=== PATIENT | female | born 1965 | race Caucasian/White ===

== ENCOUNTER 2023-12-30 10:23 | Emergency (ER) | payer OTHER, SELFPAY ==
--- NOTE | 2023-12-30 10:15 | RT.EKG_ITS ---
APPROVED REPORT Exam: Resting ECG Reason for Exam: Chest pain Patient Location: E HR:50 bpm ECG Measurements Heart Rate 50 AXIS NE 176 P 25 QRSd 90 QRS 10 QT 467 T 120 QTc 428 Conclusion Sinus bradycardia...rate< 60
[2023-12-30 10:25] VITALS: BP 150/75; PULSE 51; RESP 18; TEMP 36.4; O2SAT 96
--- NOTE | 2023-12-30 10:30 | DI.RAD_ITS ---
Exam(s) XR CHEST 2V PA LATERAL EXAM: XR CHEST 2V PA LATERAL CLINICAL HISTORY: chest pain TECHNIQUE: 2D digital imaging was performed. Two views. COMPARISON: No exams were available for comparison FINDINGS: HEART: Normal size. Aorta: Not dilated. PULMONARY VASCULATURE: Normal. LUNGS: Clear. PLEURAL SPACE: No pleural effusion or pneumothorax. BONE:Unremarkable for age. Soft tissues: Unremarkable. IMPRESSION: No acute abnormality. DATA REPOSITORY: RADIATION DOSE DELIVERED:
[2023-12-30 10:42] VITALS: RESP 16
[2023-12-30 10:44] LABS: Abs Immature Grans 0.02 10^3/uL (0.0-0.06); Absolute Basophil Count 0.04 10^3/uL (0.0-0.2); Absolute Eosinophil Count 0.07 10^3/uL (0.0-0.7); Absolute Lymphocyte Count 1.48 10^3/uL (1.2-3.4); Absolute Neutrophil Count 4.29 10^3/uL (1.2-6.7); Basophils % 0.6 %; Eosinophils % 1.1 %; HCT 46.6 % (36.0-46.0); HGB 15.7 g/dL (11.2-15.7); Immature Grans % 0.3 %; Lymphocytes % 23.1 %; MCH 31.7 pg (27.0-33.0); MCHC 33.7 % (32.0-36.0); MCV 94 fL (80-95); Monocytes % 7.8 %; Neutrophils % 67.1 %; Platelet Count 203 10^3/uL (130-400); RBC 4.95 10^6/uL (3.93-5.22); RDW 11.7 % (11.7-14.6); RDW-SD 40.5 fL
--- NOTE | 2023-12-30 10:52 | W.ED.GENAD ---
Discharge Plan Disposition Patient Disposition: Home Condition: Improving Discharge Details Clinical Impression: Pressure in chest Primary Care Provider: Unknown,Unknown ED Provider: Tony Noyola Home Meds and New Rx's Prescriptions: Continued topiramate [Topamax] 50 mg tablet 50 mg PO DAILY topiramate [Topamax] 25 mg tablet 25 mg PO QHS fluoxetine [Prozac] 40 mg capsule 40 mg PO DAILY lisinopril 10 mg tablet 10 mg PO DAILY trazodone 50 mg tablet 50 mg PO QHS PRN alprazolam [Xanax] 0.5 mg tablet 0.5 mg PO BID-TID PRN Discharge Instructions Instructions: Chest pain Additional Instructions: Your evaluation in the ER today does not reveal any obvious emergent process. You did respond well to the IV Pepcid as well as the GI cocktail. I do recommend taking [id number] Pepcid for the next 2 weeks and monitor your symptoms carefully. I would also contact your primary care provider on Tuesday to discuss your ER visit and need for outpatient reevaluation. I would recommend an outpatient stress test and echocardiogram for thorough cardiac workup. You do have subtle changes on your EKG although there were no dynamic changes on repeat EKG. Your troponins also appear stable. Please watch for new or worsening symptoms and return to the ER for any concerns. Discharge Data Discharge Date/Time-TO BE ENTERED AT DEPARTURE: 12/30/23 15:59 HPI General Mode of arrival: ambulatory. Date/Time Provider Initiated Documentation: 12/30/23 10:33. Limitations to Documentation: no limitations. Information obtained by: patient. History of Present Illness 58 year old F presents to the emergency department with the chief complaint of heart burn, described as moderate, with intensity rated at 5. Quality is described as burning, and is localized to the chest and abdomen (upper). Patient reports no radiation. Patient started experiencing this hour(s) (3.5) and it has been constant. No relieving factors improve symptom(s), No exacerbating factors reported . Patient notes nausea/vomiting (just nausea). Patient did receive the following treatments prior to arrival, other (Tums) Related Data Home Medications Medication Instructions Recorded Confirmed alprazolam 0.5 mg tablet (Xanax) 0.5 mg PO BID-TID PRN 12/30/23 12/30/23 fluoxetine 40 mg capsule (Prozac) 40 mg PO DAILY 12/30/23 12/30/23 lisinopril 10 mg tablet 10 mg PO DAILY 12/30/23 12/30/23 topiramate 25 mg tablet (Topamax) 25 mg PO QHS 12/30/23 12/30/23 topiramate 50 mg tablet (Topamax) 50 mg PO DAILY 12/30/23 12/30/23 trazodone 50 mg tablet 50 mg PO QHS PRN 12/30/23 12/30/23 Allergies Allergy/AdvReac Type Severity Reaction Status Date / Time No Known Allergies Allergy Unverified 12/30/23 10:39 General Stated Complaint: Chest Pain TIMMY: 2 Review of Systems Constitutional Constitutional: Denies headache(s) and Denies weakness ENT Ears, Nose, Mouth, and Throat: Denies headache(s) and Denies neck pain Cardiovascular Cardiovascular: Denies chest pain, Denies dyspnea and Reports other (Chest pressure) Respiratory Respiratory: Denies cough and Denies dyspnea Gastrointestinal Gastrointestinal: Reports abdominal pain, Denies diarrhea and Reports nausea Genitourinary Genitourinary: Denies dysuria Musculoskeletal Musculoskeletal: Denies back pain and Denies neck pain Integumentary/Breasts Skin/Breast: Denies rash Neurologic Neurologic: Denies headache(s) and Denies weakness Exam Const General: cooperative, healthy appearing, comfortable and no acute distress Orientation: alert and awake [facility] Head: normal to inspection, normocephalic and atraumatic Face and sinus: normal facial exam Mouth: moist mucous membranes Eyes General: appearance normal, both eyes and all related structures Conjunctivae: conjunctivae normal Neck Neck: normal visual inspection, full ROM, trachea midline and supple Chest Chest: normal inspection of the chest and normal palpation of entire chest wall Resp Effort & Inspection: normal respiratory effort and able to speak in complete sentences Auscultation: clear to auscultation bilaterally Cardio Rate: bradycardic (50s, patient reports baseline resting heart rate) Rhythm: regular rhythm GI Inspection: normal to inspection Palpation: soft, not firm, no guarding and nontender Auscultation: normal bowel sounds Back/Spine/Pelvis Back: No back tenderness Skin General skin exam: no rashes or lesions noted Neuro General: patient alert, patient awake, moves all extremities and no focal motor deficits Cognition: normal cognition Speech: speech normal Gait: normal gait Sensory Exam: no sensory deficits noted Extrem General: normal to inspection, full ROM, capillary refill normal and no pedal edema Psych Appearance: grossly normal Mental Status: mental status grossly normal Course Vital Signs Vital signs: Vital Signs Temperature 36.4 C L 12/30/23 10:25 Pulse 51 L 12/30/23 10:25 Respiratory Rate 18 12/30/23 10:25 Blood Pressure 150/75 H 12/30/23 10:25 Pulse Oximetry 96 12/30/23 10:25 Temperature 36.4 C L 12/30/23 10:25 Temperature Source Tympanic 12/30/23 10:25 Pulse 51 L 12/30/23 10:25 Respiratory Rate 16 12/30/23 10:42 Respiratory Effort Normal 12/30/23 10:42 Respiratory Depth Normal 12/30/23 10:42 Respiratory Pattern Normal 12/30/23 10:42 Blood Pressure 150/75 H 12/30/23 10:25 Blood Pressure Position Supine 12/30/23 10:25 Pulse Oximetry 96 12/30/23 10:25 Oxygen Delivery Method Room Air 12/30/23 10:25 Oxygen Flow Rate 0 12/30/23 10:25 Pain Level 4 12/30/23 10:25 Lab/Test Results Lab/Test Results: Laboratory Tests Range/Units 12/30/23 10:32 WBC (4.4-10.8) 10^3/uL 6.40 RBC (3.93-5.22) 10^6/uL 4.95 Hgb (11.2-15.7) g/dL 15.7 Hct (36.0-46.0) % 46.6 H MCV (80-95) fL 94 MCH (27.0-33.0) pg 31.7 MCHC (32.0-36.0) % 33.7 RDW (11.7-14.6) % 11.7 Plt Count (130-400) 10^3/uL 203 MPV (8.0-11.0) fL 11.0 Immature Gran % % 0.3 Neutrophils % % 67.1 Lymphocytes % % 23.1 Monocytes % % 7.8 Eosinophils % % 1.1 Basophils % % 0.6 Nucleated RBC % (0.0-0.3) % 0.0 Absolute Neutrophils (1.2-6.7) 10^3/uL 4.29 Absolute Lymphocytes (1.2-3.4) 10^3/uL 1.48 Absolute Monocytes (0.1-0.8) 10^3/uL 0.50 Absolute Eosinophils (0.0-0.7) 10^3/uL 0.07 Absolute Basophils (0.0-0.2) 10^3/uL 0.04 Medical Decision Making This is a 58-year-old female, non-smoker, reports that on Tuesday she developed some abdominal cramping associated with some nausea. Over the next 24 hours though symptoms resolved but she began having some what she describes as heartburn. Progressively throughout the week his heartburn has become worse and is now which she describes a pressure in her central chest which does not radiate anywhere. She did trial some [id number] medications today without any real relief of her symptoms. She denies cardiac history. Admits to medical history that includes hypertension, anxiety, GERD during her . Recently started on Wegovy. Also reports some positive dietary changes. Wegovy does have known side effects of dyspepsia. Clinically she appears well, nontoxic. Hemodynamically stable. Chest pressure and heartburn but no active chest pain. Heart rate in the 50s. Plan to obtain IV access and initiate cardiac workup and serial troponin and EKG. No shortness of breath, cough, chest pain, extremely low suspicion for PE. Will not pursue D-dimer. Will provide a single dose of aspirin for cardioprotective purposes and will give a GI cocktail. Patient is agreeable to this plan. Upon reevaluation she is resting comfortably, remains hemodynamically stable. Reports that her symptoms are much improved after the GI cocktail but not resolved completely. Initial laboratory values are unremarkable including a troponin less than 50. Patient is agreeable to IV Pepcid and awaiting delta troponin. Upon reevaluation patient is resting comfortably, no acute distress. She now reports that her symptoms have resolved completely. Delta troponin remains less than 50. Repeat EKG at 1315 reveals sinus bradycardia, rate in the 50s, no dynamic changes no ST elevation. Subtle depressions remain unchanged. PVC noted. Please see Dr. Lilly's official report. Discussed in length with patient and family patient is now asymptomatic, reassuring workup here in the ER. Overall patient is low risk. Discussed while this could be dyspepsia secondary to medication changes, it is certainly prudent to complete her cardiac workup. At this time she does not need to be emergently admitted, would be unable to obtain echocardiogram or stress test over the weekend. Patient is quite comfortable with outpatient follow-up. Plan to be discharged from the ER and she will take [id number] Pepcid for the next 2 weeks. On Tuesday she will contact her PCP to discuss her ER visit, symptoms, and need for outpatient reevaluation including cardiac workup. She was encouraged to return to the ER immediately for new or evolving symptoms. Standard discharge and return precautions were provided. Patient understands, is agreeable to this plan, and has no additional questions or concerns upon discharge. This documentation was generated using mBloxation system, please disregard any oddities of phrase or misspellings. Medical Records Medical records narrative: No prior records to review Imaging Data Radiologic Study: Attestation: I personally reviewed and interpreted this imaging study as follows: Imaging: X-Ray My impression: Chest x-ray negative Radiologist's impression: No acute disease process Lab Data Lab results reviewed: Yes I reviewed the patient's lab results. ECG Data Attestation: I personally reviewed and interpreted this ECG (s) as follows: Interpretation: Sinus bradycardia, ventricular rate in the 50s. No STEMI. Subtle ST depressions noted. No prior EKG for comparison. Please see official report by Dr. Lilly Quality:[facility] Health Related Social Needs: No Data to Display [facility] All Active Problems (Updated 12/30/23 @ 14:46 by FRANKLYN Daniels) Pressure in chest (Acute) Social History Smoking/Tobacco Use Status: Never Smoking risk assessment performed?: Yes Alcohol Intake: current Alcohol Intake frequency: a few times a month Drug use: Occasionally Substance use type: marijuana PAWSS Have you Been Recently Intoxicated or Drunk Within the Last 30 days?: No Have you Ever Experienced Previous Episodes of Alcohol Withdrawal?: No Have you ever Experienced Withdrawal Seizures?: No Have you ever Experienced Delirium Tremens(DT)s?: No Have you ever undergone Alcohol Rehabilitation Treatment (i.e, inpt ot outpatient treatment programs)?: No Have you ever Experienced Blackouts?: No Have you ever Combined Alcohol with other Downers within the last 90 days?: No Have you ever Combined Alcohol with any other Substance of Abuse during the last 90 days?: No Result: 0
[2023-12-30 11:14] LABS: ALT 23 U/L (14-59); AST 15 U/L (15-37); Albumin 4.3 g/dL (3.4-5.0); Alkaline Phosphatase 93 U/L (46-116); Anion Gap 9.2 mmol/L (3-11); BUN 15 mg/dL (7-18); Bilirubin, Total 0.82 mg/dL (0.2-1.0); CO2 25.8 mmol/L (21.0-32.0); CREATININE 0.9 mg/dL (0.55-1.02); Calcium 9.5 mg/dL (8.5-10.1); Chloride 105 mmol/L (98-107); Estimated GFR 73.19 (mL/min/1.73m2); Glucose 102 mg/dL (74-106); Potassium 3.7 mmol/L (3.5-5.1); Sodium 140 mmol/L (136-145); Total Protein 7.5 g/dL (6.4-8.2); Troponin I < 50 ng/L (< or =60)
[2023-12-30] MEDS: Aspirin 81 MG CHEW 324 MG CH (11:15)
[2023-12-30] MEDS: FAMOTIDINE 20 MG/50 ML BAG 200 MG IVPB (13:09)
--- NOTE | 2023-12-30 13:15 | RT.EKG_ITS ---
APPROVED REPORT Exam: Resting ECG Reason for Exam: Repeat EKG Patient Location: E HR:56 bpm ECG Measurements Heart Rate 56 AXIS CO 195 P 47 QRSd 89 QRS 0 QT 438 T 136 QTc 405 Conclusion Sinus bradycardia...rate< 60 Ventricular premature complex...V complex w/ short R-R interval
[2023-12-30 13:58] LABS: Troponin I < 50 ng/L (< or =60)
== END 2023-12-30 15:59 | disposition home or self-care (01) ==
LOC: ER 15:15
PROVIDERS: Physician Assistant; Emergency Provider Physician Assistant
DX: R07.89 Other chest pain (principal)
CPT/HCPCS: 36415; 80053; 93005; 96374; 99284; 71046; 83735; 84484; 85025; 93010; 99283

== ENCOUNTER 2024-02-20 02:23 | Outpatient (CLI) | payer OTHER, SELFPAY ==
--- NOTE | 2024-02-20 10:48 | DI.RAD_ITS ---
Exam(s) XR HIP LT COMPLETE AP PELVIS EXAM: XR HIP LT COMPLETE AP PELVIS CLINICAL HISTORY: PAIN LT HIP, M25.552. TECHNIQUE: 2D digital imaging was performed of the left hip. Two views were obtained. AP pelvis an d lateral left hip views were obtained. COMPARISON: No exams were available for comparison FINDINGS: BONES: No acute fracture is present. No bony destructive lesion is seen. JOINTS: No dislocation present. The hip joints are well maintained. The sacroiliac joints are unrema rkable. There are degenerative changes seen in the lower visualized lumbar spine. SOFT TISSUE: Normal. IMPRESSION: 1. Degenerative changes seen in the lower lumbar spine. 2. No acute fracture or dislocation of the left hip. DATA REPOSITORY: RADIATION DOSE DELIVERED:
== END 2024-02-20 02:43 ==
PROVIDERS: PCP Nurse Practitioner Family; Visit Provider Nurse Practitioner Family
DX: M25.552 Pain in left hip (principal); M16.12 Unilateral primary osteoarthritis, left hip
CPT/HCPCS: 73502

== ENCOUNTER 2024-03-09 00:43 | Outpatient (CLI) | payer OTHER, SELFPAY ==
--- NOTE | 2024-03-09 | DI.MAMMO_ITS ---
Exam(s) MAMMO SCREENING EXAM: MAMMO SCREENING CLINICAL HISTORY: Z12.31 Screening. TECHNIQUE: Bilateral full field digital CC and MLO mammographic images were obtained with 3D tomosyn thesis and utilizing computer aided detection (CAD). COMPARISON: Prior outside mammograms were reviewed. Most recent September 2021. FINDINGS: The fibroglandular tissue pattern is again noted dense, this somewhat decreasing the sensitivity mamm ogram for finding lesions. There are no obvious new spiculated masses nor malignant appearing microcalcification groups. Numerous scattered benign-appearing Punctate microcalcifications are again noted in the breasts. Asymmetric density laterally the left breast unchanged prior studies. There is no significant architectural distortion nor skin thickening-retraction. IMPRESSION: S bilateral fibroglandular tissue no obvious radiographic evidence of malignancy nor significant sheth ge compared to prior outside mammogram. BI-RADS Category 2 - Benign Findings Breast Density - Category D - Extremely dense Breast density Category C or D implies that the patient has dense breast tissue. Dense breast tissue can make it harder to find cancer on a mammogram. Dense breast tissue is also associated with an incr eased risk of breast cancer. This information about the result of the mammogram report was provided to the patient to raise their awareness. Use this report when you speak with the patient about their risks for breast cancer, which includes their family history. At that time, you may recommend additional screening tests (Ultrasoun d or MRI) as these tests may add significant information. A negative radiographic report should not delay biopsy if a dominant or clinically suspicious mass is present. Up to ten percent of cancers are not identified on mammography. A negative report may reinforce clinical impression. Adenosis and dense breasts may obscure an underlying neoplasm. False positive reports average 6 to 10%. Patient will receive a letter notifying them of these results.
== END 2024-03-09 01:03 ==
LOC: DI 00:43
PROVIDERS: PCP Nurse Practitioner Family; Visit Provider Nurse Practitioner Family
DX: Z12.31 Encounter for screening mammogram for malignant neoplasm of breast (principal)
CPT/HCPCS: 77063; 77067

== ENCOUNTER 2024-03-15 15:34 | Outpatient (CLI) | payer OTHER, SELFPAY ==
[2024-03-15 16:13] LABS: BUN 14 mg/dL (7-18); Chloride 103 mmol/L (98-107); Estimated GFR 64.49 (mL/min/1.73m2); Glucose 81 mg/dL (74-106); Potassium 3.7 mmol/L (3.5-5.1); Sodium 139 mmol/L (136-145)
== END 2024-03-15 15:35 | disposition home or self-care (01) ==
LOC: LBO 15:34
PROVIDERS: PCP Nurse Practitioner Family; Visit Provider Nurse Practitioner Family
DX: I71.40 Abdominal aortic aneurysm, without rupture, unspecified (principal)
CPT/HCPCS: 36415; 80048

== ENCOUNTER 2024-05-30 20:43 | Emergency (ER) | payer OTHER, SELFPAY ==
[2024-05-30] VITALS (37 sets, daily range): BP systolic 81–119; BP diastolic 51–76; PULSE 73–103; RESP 14–33; TEMP 36.4; O2SAT 93–100
--- NOTE | 2024-05-30 20:30 | RT.EKG_ITS ---
APPROVED REPORT Exam: Resting ECG Reason for Exam: Afib Patient Location: E HR:85 bpm ECG Measurements Heart Rate 85 AXIS IN [id number] P [id number] QRSd 80 QRS 42 QT 425 T 240 QTc 505 Conclusion Atrial fibrillation...? atrial activity Abnormal T, consider ischemia, diffuse leads...T <-0.20mV, ant/lat/inf Prolonged QT interval...QTc >500mS
--- NOTE | 2024-05-30 20:45 | DI.CT_ITS ---
Exam(s) CT THORAX ABD/PEL CTA EXAM: CT THORAX ABD/PEL CTA CLINICAL HISTORY: recent TAA repair; new a fib, dizziness, CP. TECHNIQUE: Imaging Protocol: Axial computed tomography images with coronal and sagittal reformatted images were created and reviewed CONTRAST MATERIAL: Intravenous: Omnipaque 350 Contrast volume:100 ml Oral: None COMPARISON: CT CT THORAX CTA from 03/21/2024 FINDINGS: CHEST: AORTA: There is evidence of recent sternotomy/thoracic aortic surgery and the size of the ascending t horacic aorta lumen has decreased, presently measuring 3 cm. However, there is a 1.5 cm thick circum ferential fluid collection around aortic lumen which exhibits gas bubbles therein. Consistent with p ostop collection but cannot exclude pyogenic. There is no extravasation of intra luminal contrast in to this collection. There is no evidence of aortic dissection and the origins of the great vessels o ff the aortic arch appear unremarkable. Descending thoracic aorta exhibits mildly prominent diameter of 3 cm, unchanged from previous. No ev idence of abdominal aortic aneurysm nor dissection and the aortoiliac segments are unremarkable. CARDIAC: Heart size is normal. Pericardial thickness upper normal. MEDIASTINUM: No hilar nor mediastinal adenopathy. LUNGS: There is atelectasis-volume loss in left lower lobe basal segments most probably related to re cent surgery. There is a small left pleural effusion.. Mild pleural based infiltrate noted in the p osterior basal segment of the right lower lobe. ABDOMEN: There is no evidence of abdominal aortic aneurysm nor dissection.There is no aneurysmal dilatation of the common iliac arteries.The celiac and superior mesenteric arteries are patent. There is no ascites. LIVER: There are no focal hepatic lesions nor dilatation of intrahepatic ducts. GALLBLADDER/BILIARY: Gallbladder is contracted. CBD is not dilated. PANCREAS: No evidence of pancreatic mass nor dilatation of the pancreatic duct. SPLEEN: Spleen is not enlarged. There are no intrasplenic lesions. Splenic and portal veins are flood nt. ADRENALS: There are no significant adrenal masses. KIDNEYS: No cysts evident. No calculi nor hydronephrosis. No solid renal masses. ABDOMINAL AORTA: The abdominal aorta is not enlarged. LYMPH NODES: There is no retroperitoneal nor para-aortic adenopathy. No obvious mesenteric masses. ABDOMINAL WALL: No evidence of significant anterior abdominal wall hernia. GI: There is no evidence of bowel obstruction, free air, nor abscess. PELVIS: LYMPH NODES: There is no intrapelvic nor inguinal adenopathy. GI: No evidence of appendicitis.No evidence of sigmoid diverticulitis. URINARY BLADDER: No calculi nor masses evident REPRODUCTIVE: Age-appropriate. No abnormal adnexal masses nor free fluid in the pelvis. OSSEOUS: No significant osseous lesions. No fractures. Multilevel chronic disc space narrowing at L 3-4 and L5-S1 levels. No listhesis. IMPRESSION: 1. Compared to the prior CT scan of 03/21/2024 there has been interval sternotomy and surgery in the ascending thoracic aorta for aneurysm repair, as described above. However, there is an abnormal circ umferential fluid collection surrounding the entire ascending thoracic aorta which is 1.5 cm thick an d contains gas bubbles. Cephalocaudal length of this abnormal collection is approximately 7 cm. This postop fluid collection contains gas bubbles and correlation since time of surgery recommended. Marika ot exclude possibly that this is a pyogenic/infectious collection. There is no extravasation of intraluminal contrast into the collection and there is no evidence of ao rtic dissection. 2. There is volume loss in basal segments of the left lower lobe and a small left pleural effusion. There is a small amount of infiltrate in the posterior basal segment of the right lower lobe. There is no pleural effusion on the right side. This study 1st read by [facility] on 05/30/2024 Final report called by myself to ER physician 05/31/2024 at 9:50 a.m. RADIATION DOSE DELIVERED: 255.9mGy.cm Total DLP DATA REPOSITORY: All CT scans at this facility are submitted to the National Radiology Data Registry (NRDR) Dose Index Registry (DIR) with the [employer] (A[employer]). RADIATION OPTIMIZATION: All CT scans at this facility use at least one of these dose optimization te chniques: automated exposure control; mA and/or kV adjustment per patient size (includes targeted exa ms where dose is matched to clinical indication); or iterative reconstruction.
--- NOTE | 2024-05-30 20:57 | ED.GENADUL_ITS ---
Discharge Plan Discharge Details Chief Complaint: Dizzy/Sync Primary Care Provider: Tyesha Rosario ED Provider: Patrick Mcgregor Home Meds and New Rx's Prescriptions: No Action albuterol sulfate 90 mcg/actuation HFA aerosol inhaler 2 puff inhalation Q6H PRN dextroamphetamine-amphetamine [Adderall] 10 mg tablet 10 mg PO BID Rx Instructions: administer doses at least 4-6 hours apart topiramate [Topamax] 50 mg tablet 50 mg PO DAILY topiramate [Topamax] 25 mg tablet 25 mg PO QHS fluoxetine [Prozac] 40 mg capsule 40 mg PO DAILY trazodone 50 mg tablet 50 mg PO QHS PRN alprazolam [Xanax] 0.5 mg tablet 0.5 mg PO BID-TID PRN HPI General Date/Time Provider Initiated Documentation: 05/30/24 20:44 . HPI Narrative: 59 year-old female presents to ED today by POV/ambulating with her with a chief complaint of dizziness, palpitations, mild chest pain, 2 weeks s/p TAA repair at [facility] [place], discharged 1 week ago today with onset about 3 hours ago. Patient questions if she's been in atrial fibrillation earlier this week but isn't sure. Quality described as palpitations, dizziness, mild chest pain, denies crushing chest pain, denies exertional onset, did go for a walk today, no radiation to cough, fever, shortness of breath, abdominal pain, nausea or vomiting, patient is tolerating p.o. intake endorses slightly less than normal appetite, denies black or bloody stools. Severity is described as moderate. Palliating factors include nothing specific attempted. Provoking factors include nothing specific. Events leading up to the incident/Associated Symptoms: Patient is wearing a Zio patch because allegedly there is suspicion of a possible heart block while at [facility] [place], patient had their aortic root and valve repaired, they also found two other leaky valves. Patient not anticoagulated, is on Plavix and ASA. Related Data Home Medications ?Medication ?Instructions ?Recorded ?Confirmed alprazolam 0.5 mg tablet (Xanax) 0.5 mg PO BID-TID PRN 12/30/23 05/30/24 fluoxetine 40 mg capsule (Prozac) 40 mg PO DAILY 12/30/23 05/30/24 topiramate 25 mg tablet (Topamax) 25 mg PO QHS 12/30/23 05/30/24 topiramate 50 mg tablet (Topamax) 50 mg PO DAILY 12/30/23 05/30/24 trazodone 50 mg tablet 50 mg PO QHS PRN 12/30/23 05/30/24 albuterol sulfate 90 mcg/actuation 2 puff inhalation Q6H PRN 02/22/24 05/30/24 aerosol inhaler dextroamphetamine-amphetamine 10 10 mg PO BID 02/22/24 05/30/24 mg tablet (Adderall) Allergies Allergy/AdvReac Type Severity Reaction Status Date / Time No Known Allergies Allergy Unverified 05/30/24 20:51 General Stated Complaint: Dizzy/Sync TIMMY: 3 Review of Systems All systems reviewed & are unremarkable except as noted in HPI and below Exam Narrative Exam Narrative: GENERAL APPEARANCE: Well-nourished, non-toxic, awake and alert, atraumatic, no acute distress. SKIN: Warm, pink, dry, intact, without rashes/lesions/ulcerations. HEAD: Normocephalic, atraumatic, normal hair distribution for gender/age. EYES: Normal conjunctiva, no exudates on lids/lashes. ENT: Nares patent, no circumoral cyanosis, no facial swelling NECK: Supple, trachea midline, painless cervical ROM. LUNGS/CHEST: Lungs CTA bilaterally, non-labored respirations, normal A/P diameter, symmetrical expansion, no chest wall deformity HEART (CV/PV): Regular rate and rhythm without murmur, no peripheral edema, no JVD. ABDOMEN: Soft, non-distended, no guarding. MSK: Normal ROM, no swelling/deformity to bilateral UEs or LEs, moving all extremities without weakness, no cyanosis, spine midline without tenderness, normal curvature. NEURO: Mental Status AAOx4 - alert to person, place, time, events No facial droop, no forehead involvement. Motor: No focal weakness - strength 5/5 in bilateral UEs and LEs, proximal and distal, symmetric. Sensory: sensation intact to light touch globally. Gait normal: patient ambulated without ataxia into ED room. PSYCH: euthymic, cooperative, pleasant, appropriate speech Course Vital Signs Vital signs: Vital Signs Temperature 36.4 C 05/30/24 20:45 Pulse 100 H 05/30/24 20:45 Respiratory Rate 15 05/30/24 20:45 Blood Pressure 112/69 05/30/24 20:45 Pulse Oximetry 96 05/30/24 20:45 Temperature 36.4 C 05/30/24 20:45 Temperature Source Oral 05/30/24 20:45 Pulse 100 H 05/30/24 20:45 Respiratory Rate 15 05/30/24 20:45 Respiratory Effort Short of Breath 05/30/24 20:53 Blood Pressure 112/69 05/30/24 20:45 Blood Pressure Position Sitting 05/30/24 20:45 Pulse Oximetry 96 05/30/24 20:45 Oxygen Delivery Method Room Air 05/30/24 20:45 Oxygen Flow Rate 0 05/30/24 20:45 Medical Decision Making This dictation utilizes [id number] dictation software and may contain un edited grammatical errors. 59 year-old female presents to ED today by POV/ambulating with her with a chief complaint of dizziness, palpitations, mild chest pain, 2 weeks s/p TAA repair at [facility] [place], discharged 1 week ago today with onset about 3 hours ago. Patient questions if she's been in atrial fibrillation earlier this week but isn't sure. Quality described as palpitations, dizziness, mild chest pain, denies crushing chest pain, denies exertional onset, did go for a walk today, no radiation to cough, fever, shortness of breath, abdominal pain, nausea or vomiting, patient is tolerating p.o. intake endorses slightly less than normal appetite, denies black or bloody stools. Severity is described as moderate. Palliating factors include nothing specific attempted. Provoking factors include nothing specific. Events leading up to the incident/Associated Symptoms: Patient is wearing a Zio patch because allegedly there is suspicion of a possible heart block while at [facility] [place], patient had their aortic root and valve repaired, they also found two other leaky valves. Patient not anticoagulated, is on Plavix and ASA. Patients' medical history: Migraine, anxiety, panic attack, hypertension, recent thoracic aortic aneurysm repair. Family and social history: Denies EtOH use, denies illicit drug use, has been resting at home postoperatively, does go for walks. Pertinent exam findings / vital signs include surgical scar site looks good, Zio patch on chest, no significant JVD, no pulsatile abdominal masses, nontender abdomen, neuro intact, irregular rate and rhythm. Differential / pathologies of concern include atrial fibrillation with RVR, new onset A-fib, surgical complication, heart block. Diagnostic studies of: -CBC, CMP, serial troponins, PT/PTT, EKG, urinalysis, CTA thorax abdomen pelvis. -EKG shows likely A-fib but there is possibly some atrial activity, she has diffuse T wave inversions likely postoperatively, no Sgarbossa criteria are ST elevation -CMP is benign -CBC shows no leukocytosis, no anemia, shows mildly elevated platelet count -Initial troponin 15 -PT/PTT within normal limits -CTA questions bibasilar atelectasis, question pneumonia with asymmetry of them. Interventions of: -500mL saline bolus. ED Course/Assessment/Plan: 59-year-old female presents with dizziness for the past 3 hours, and acute new onset atrial fibrillation after recent thoracic aortic aneurysm and valvular repair, wearing a Zio patch for neurologic possible investigation of heart block while at [facility] [place], discharge was 1 week ago today, patient Dors is mild chest pain but no crushing chest pain or exertional onset, did go for a walk today, dizziness started while she was at rest. She only endorses some pain around her surgical site which looks great, there is no abdominal pain, denies nausea, denies fainting. Patient endorses seeing some runs of heart rate in the 130s on her Apple Watch but no sustained signs of A-fib with RVR at this time, rate controlled without intervention here in the emergency department, plan to consult with [facility] [place] cardiology services, discussed with EM attending Dr. Osman Lilly, will hold off on cardioversion at this time. Patient signed out to oncoming provider Dr. Roselyn Capellan at shift-change. Findings not consistent with ACS, TAA rupture, . Disposition of Atrial Fibrillation. Patient verbalized understanding of the plan and return to ED criteria and engaged in shared decision making. Medical Records Medical records reviewed: Yes I reviewed the patient's medical records. Imaging Data Radiologic Study: Attestation: I personally reviewed and interpreted this imaging study as follows: Imaging: CT Scan Radiologist's impression: Exam: CTA Chest With Contrast CTA Abdomen and Pelvis With Contrast Exam date and time: 05/30/2024 9:41 PM Age: 59 years old Clinical indication: Other: Recent taa repair; New a fib, dizziness, cp; Prior surgery; Surgery date: 3-7 days post-operative; Surgery type: Taa repair x last week TECHNIQUE: Imaging protocol: Computed tomographic angiography of the chest with contrast. Exam focused on the arteries. Computed tomographic angiography of the abdomen and pelvis with contrast. Exam focused on the arteries. 3D rendering (Not supervised by radiologist): MIP and/or 3D reconstructed images were created by the technologist. Contrast material: OMNI 350; Contrast volume: 80 ml; Contrast route: INTRAVENOUS (IV); COMPARISON: CT THORAX CTA 03/21/2024 2:54 PM FINDINGS: VASCULATURE: Pulmonary arteries: Normal. No pulmonary emboli. Aorta: Recent thoracic aortic surgery with small periaortic air and fluid collection, likely postop changes/seroma. No evidence of aortic dissection or residual aneurysm. Celiac trunk and mesenteric arteries: No occlusion or significant stenosis. Renal arteries: No occlusion or significant stenosis. Right iliac arteries: No occlusion or significant stenosis. Left iliac arteries: No occlusion or significant stenosis. Veins: Right neck and chest collateral vessels. Thyroid: No thyroid lesions. No thyroid enlargement. CHEST: Trachea: The central airways clear. Lungs: Bibasilar atelectasis versus aspiration, [id number]-right. Pleural spaces: Left-sided pleural effusion. Heart: No cardiomegaly or pericardial effusion. ABDOMEN AND PELVIS: Liver: Unremarkable Gallbladder and biliary ducts: The gallbladder is contracted. Pancreas: The pancreas is unremarkable. Spleen: No splenomegaly. No lesions. Adrenal glands: The adrenal glands are unremarkable. Kidneys and ureters: The kidneys are normal. Stomach and bowel: No evidence of bowel obstruction. No pericolonic inflammatory stranding. Moderate stool throughout the colon and rectum. Appendix: Normal appendix. Intraperitoneal space: Unremarkable. No free air. No significant fluid collection. Urinary bladder: No focal wall thickening of the urinary bladder. Reproductive: Unremarkable as visualized. Lymph nodes: Unremarkable. No enlarged lymph nodes. Bones/joints: Sternotomy wires are intact. No acute osseous abnormality. Soft tissues: Soft tissues are unremarkable as visualized. Soft tissues are unremarkable as visualized. IMPRESSION: 1. Bibasilar atelectasis versus aspiration, [id number]-right. 2. Recent thoracic aortic surgery with small periaortic air and fluid collection, likely postop changes/seroma. 3. No evidence of aortic dissection or residual aneurysm. Dictated and Authenticated by: Cherry Olmos MD. Lab Data Lab results reviewed: Yes I reviewed the patient's lab results. Labs: Laboratory Tests Range/Units 05/30/24 20:55 WBC (4.4-10.8) 10^3/uL 9.10 RBC (3.93-5.22) 10^6/uL 3.72 L Hgb (11.2-15.7) g/dL 11.4 Hct (36.0-46.0) % 35.8 L MCV (80-95) fL 96 H MCH (27.0-33.0) pg 30.6 MCHC (32.0-36.0) % 31.8 L RDW (11.7-14.6) % 12.3 Plt Count (130-400) 10^3/uL 572 H MPV (8.0-11.0) fL 8.7 Immature Gran % % 0.9 Neutrophils % % 69.5 Lymphocytes % % 20.9 Monocytes % % 6.8 Eosinophils % % 1.5 Basophils % % 0.4 Nucleated RBC % (0.0-0.3) % 0.0 Absolute Neutrophils (1.2-6.7) 10^3/uL 6.32 Absolute Lymphocytes (1.2-3.4) 10^3/uL 1.90 Absolute Monocytes (0.1-0.8) 10^3/uL 0.62 Absolute Eosinophils (0.0-0.7) 10^3/uL 0.14 Absolute Basophils (0.0-0.2) 10^3/uL 0.04 PT (9.1-11.1) sec 10.8 INR (0.9-1.1) 1.1 APTT (23.6-32.8) sec 28.5 Sodium (136-145) mmol/L 137 Potassium (3.5-5.1) mmol/L 4.1 Chloride (98-107) mmol/L 104 Carbon Dioxide (21.0-32.0) mmol/L 22.9 Anion Gap (3-11) mmol/L 10.1 BUN (7-18) mg/dL 15 Creatinine (0.55-1.02) mg/dL 0.9 Est GFR (CKD-EPI 2020) (mL/min/1.73m2) 72.73 Glucose (74-106) mg/dL 95 Calcium (8.5-10.1) mg/dL 9.1 Total Bilirubin (0.2-1.0) mg/dL 0.31 AST (15-37) U/L 22 ALT (14-59) U/L 27 Alkaline Phosphatase (46-116) U/L 114 Troponin I (<or=51) ng/L 15 Total Protein (6.4-8.2) g/dL 7.5 Albumin (3.4-5.0) g/dL 2.8 L Quality:[facility] Health Related Social Needs: No Data to Display [facility] Medical History (Updated 03/09/24 @ 11:28 by Loraine Ovalle RN) Migraine Anxiety Panic attack Lateral epicondylitis Essential hypertension [place] Blepharitis Regular astigmatism Moderate episode of recurrent major depressive disorder Osteopenia Primary insomnia Social History Smoking/Tobacco Use Status: Never Smoking risk assessment performed?: Yes Alcohol Intake: current Alcohol Intake frequency: a few times a month Drug use: Occasionally Substance use type: marijuana
[2024-05-30 21:04] LABS: Abs Immature Grans 0.08 10^3/uL (0.0-0.06); Absolute Basophil Count 0.04 10^3/uL (0.0-0.2); Absolute Eosinophil Count 0.14 10^3/uL (0.0-0.7); Absolute Monocyte Count 0.62 10^3/uL (0.1-0.8); Absolute Neutrophil Count 6.32 10^3/uL (1.2-6.7); Basophils % 0.4 %; Eosinophils % 1.5 %; HCT 35.8 % (36.0-46.0); HGB 11.4 g/dL (11.2-15.7); Immature Grans % 0.9 %; Lymphocytes % 20.9 %; MCH 30.6 pg (27.0-33.0); MCHC 31.8 % (32.0-36.0); MCV 96 fL (80-95); MPV 8.7 fL (8.0-11.0); Monocytes % 6.8 %; Neutrophils % 69.5 %; Platelet Count 572 10^3/uL (130-400); RBC 3.72 10^6/uL (3.93-5.22); RDW 12.3 % (11.7-14.6); RDW-SD 43.8 fL
[2024-05-30 21:15] LABS: INR 1.1 (0.9-1.1); PTT Activated 28.5 sec (23.6-32.8); Prothrombin Time 10.8 sec (9.1-11.1)
[2024-05-30 21:19] LABS: ALT 27 U/L (14-59); AST 22 U/L (15-37); Albumin 2.8 g/dL (3.4-5.0); Alkaline Phosphatase 114 U/L (46-116); Anion Gap 10.1 mmol/L (3-11); BUN 15 mg/dL (7-18); Bilirubin, Total 0.31 mg/dL (0.2-1.0); CO2 22.9 mmol/L (21.0-32.0); CREATININE 0.9 mg/dL (0.55-1.02); Calcium 9.1 mg/dL (8.5-10.1); Chloride 104 mmol/L (98-107); Estimated GFR 72.73 (mL/min/1.73m2); Glucose 95 mg/dL (74-106); Potassium 4.1 mmol/L (3.5-5.1); Sodium 137 mmol/L (136-145); Total Protein 7.5 g/dL (6.4-8.2); Troponin I 15 ng/L (<or=51)
[2024-05-30] MEDS: Normal Saline - Diluent 50 ML VIAL IJ (21:43)
[2024-05-30] MEDS: Omnipaque 350 MG/ML 100 ML BTL IJ (21:44)
--- NOTE | 2024-05-30 22:04 | ED.PROG_ITS ---
Date of service: 05/30/24 Time of Service: 22:00 Medical Decision Making This patient was signed out to me. Please see previous notes for H&P and initial eval. In brief, 59yo F two weeks post-op from thoracic aortic aneurysm repair with aortic root [place] [facility] [place] currently on plavix and ASA who presented with lightheadedness and palpitations x 3 hours, found to be in new onset afib. MAP >65, HR 80's. Is wearing a Zio patch because allegedly there is suspicion of a possible heart block [place] [facility] [place] She reports her HR has been as high as 130's-140's on her apple watch, has remained in 70's-80's here. Signed out pending CT read and [facility] consult. [place] as below, post-op changes. On reassessment patient is well appearing, HR remains 70's-80's and she remains normotensive. Ambulates steadily independently. No shortness of breath. No clinical indication of heart failure. Discussed with [facility] [place] head of maintenance Dr. Costello and cardiac surgery Dr. Apodaca; advised starting eliquis 5mg BID, stopping plavix, and continuing aspirin. Patient will need to followup in EP clinic and should call to schedule an appointment. No additional ED workup advised, pt felt to be appropriate for discharge home. Recommendations discussed with patient, first dose of eliquis given in the ED and pt sent with 2 day supply with prescription sent to pharmacy. Discharged home; discharge instructions and return precautions were reviewed with patient who verbalized understanding. All questions were answered and she is in full agreement with the plan. Imaging Data Radiologic Study: Imaging: CT Scan Radiologist's impression: IMPRESSION: 1. Bibasilar atelectasis versus aspiration, [id number]-right. 2. Recent thoracic aortic surgery with small periaortic air and fluid collection, likely postop changes/seroma. 3. No evidence of aortic dissection or residual aneurysm. Lab Data Lab results reviewed: Yes I reviewed the patient's lab results. Quality:[facility] Health Related Social Needs: No Data to Display Sign Out Sign Out Data: Sign Out Comment: awaiting [facility] [place], recent TAA open heart surgery, new onset intermittent rapid a fib, symptomatic. Hopeful transfer Last updated by Patrick Mcgregor PA at 05/30/24 22:18 Discharge Plan Disposition Patient Disposition: Home Condition: Good Discharge Details Clinical Impression: Atrial fibrillation Primary Care Provider: Tyesha Rosario ED Provider: Loraine Capellan Home Meds and New Rx's Prescriptions: New Eliquis 5 mg tablet 5 mg PO BID Qty: 60 0RF Continued albuterol sulfate 90 mcg/actuation HFA aerosol inhaler 2 puff inhalation Q6H PRN dextroamphetamine-amphetamine [Adderall] 10 mg tablet 10 mg PO BID Rx Instructions: administer doses at least 4-6 hours apart topiramate [Topamax] 50 mg tablet 50 mg PO DAILY topiramate [Topamax] 25 mg tablet 25 mg PO QHS fluoxetine [Prozac] 40 mg capsule 40 mg PO DAILY trazodone 50 mg tablet 50 mg PO QHS PRN alprazolam [Xanax] 0.5 mg tablet 0.5 mg PO BID-TID PRN aspirin [Adult Low Dose Aspirin] 81 mg tablet,delayed release (DR/EC) 81 mg PO DAILY Discontinued clopidogrel 75 mg tablet 75 mg PO DAILY Discharge Instructions Instructions: Atrial Fibrillation and Atrial Flutter ED Additional Instructions: STOP taking Plavix. START taking eliquis 5mg twice a day. It is very important to take this medication- if you have problems filling the prescription please call your doctor or return to the ED. Continue taking all your other medications. [place] [facility] [place] [phone] to schedule an appointment with electrophysiology. Return to the emergency department for new or worsening symptoms including chest pain, shortness of breath, feeling like you are going to pass out, HR higher than 110 at rest, or if you have any other concerns.
--- NOTE | 2024-05-30 22:12 | DI.VRAD_ITS ---
PROCEDURE INFORMATION: Exam: CTA Chest With Contrast CTA Abdomen and Pelvis With Contrast Exam date and time: 05/30/2024 9:41 PM Age: 59 years old Clinical indication: Other: Recent taa repair; New a fib, dizziness, cp; Prior surgery; Surgery date: 3-7 days post-operative; Surgery type: Taa repair x last week TECHNIQUE: Imaging protocol: Computed tomographic angiography of the chest with contrast. Exam focused on the arteries. Computed tomographic angiography of the abdomen and pelvis with contrast. Exam focused on the arteries. 3D rendering (Not supervised by radiologist): MIP and/or 3D reconstructed images were created by the technologist. Contrast material: OMNI 350; Contrast volume: 80 ml; Contrast route: INTRAVENOUS (IV); COMPARISON: CT THORAX CTA 03/21/2024 2:54 PM FINDINGS: VASCULATURE: Pulmonary arteries: Normal. No pulmonary emboli. Aorta: Recent thoracic aortic surgery with small periaortic air and fluid collection, likely postop changes/seroma. No evidence of aortic dissection or residual aneurysm. Celiac trunk and mesenteric arteries: No occlusion or significant stenosis. Renal arteries: No occlusion or significant stenosis. Right iliac arteries: No occlusion or significant stenosis. Left iliac arteries: No occlusion or significant stenosis. Veins: Right neck and chest collateral vessels. Thyroid: No thyroid lesions. No thyroid enlargement. CHEST: Trachea: The central airways clear. Lungs: Bibasilar atelectasis versus aspiration, [id number]-right. Pleural spaces: Left-sided pleural effusion. Heart: No cardiomegaly or pericardial effusion. ABDOMEN AND PELVIS: Liver: Unremarkable Gallbladder and biliary ducts: The gallbladder is contracted. Pancreas: The pancreas is unremarkable. Spleen: No splenomegaly. No lesions. Adrenal glands: The adrenal glands are unremarkable. Kidneys and ureters: The kidneys are normal. Stomach and bowel: No evidence of bowel obstruction. No pericolonic inflammatory stranding. Moderate stool throughout the colon and rectum. Appendix: Normal appendix. Intraperitoneal space: Unremarkable. No free air. No significant fluid collection. Urinary bladder: No focal wall thickening of the urinary bladder. Reproductive: Unremarkable as visualized. Lymph nodes: Unremarkable. No enlarged lymph nodes. Bones/joints: Sternotomy wires are intact. No acute osseous abnormality. Soft tissues: Soft tissues are unremarkable as visualized. Soft tissues are unremarkable as visualized. IMPRESSION: 1. Bibasilar atelectasis versus aspiration, [id number]-right. 2. Recent thoracic aortic surgery with small periaortic air and fluid collection, likely postop changes/seroma. 3. No evidence of aortic dissection or residual aneurysm. Dictated and Authenticated by: Cherry Olmos MD. Ordering:CORINA Nguyen MD
[2024-05-30 22:50] LABS: Troponin I 16 ng/L (<or=51)
[2024-05-30] MEDS: Acetaminophen 500 MG TAB 1000 MG PO (23:52)
[2024-05-30 23:54] LABS: Bilirubin Negative (Negative); Blood Trace-intact (Negative); Clarity Clear (Clear); Glucose Negative (Negative); Ketones Negative (Negative); Leukocyte Esterase Negative (Negative); Nitrite Negative (Negative); Urobilinogen 0.2 mg/dL (Up to 0.2); pH 6.5 (5-8)
[2024-05-31] VITALS (14 sets, daily range): BP systolic 92–104; BP diastolic 47–70; PULSE 70–88; RESP 15–21; O2SAT 93–98
[2024-05-31 00:01] LABS: Bacteria Rare HPF (Negative); Casts Negative LPF (Negative); Crystals Negative HPF (Negative); Epithelial Cells Negative HPF (Negative); Mucus Negative (Negative); RBC Negative HPF (0-2); WBC Negative HPF (0-5)
[2024-05-31 00:02] LABS: C & S Indicated? No
[2024-05-31] MEDS: Apixaban 5 MG TAB PO (01:13)
[2024-05-31] MEDS: Apixaban 5 MG TAB 20 MG PO (01:13)
--- NOTE | 2024-05-31 16:54 | W.ED.FU ---
Follow Up Plan: I received call from radiologist, Dr. Brooks with radiology over read of CT chest, interpreted as follows:1. Compared to the prior CT scan of 03/21/2024 there has been interval sternotomy and surgery in the ascending thoracic aorta for aneurysm repair, as described above. However, there is an abnormal circumferential fluid collection surrounding the entire ascending thoracic aorta which is 1.5 cm thick and contains gas bubbles. Cephalocaudal length of this abnormal collection is approximately 7 cm. This postop fluid collection contains gas bubbles and correlation since time of surgery recommended. Cannot exclude possibly that this is a pyogenic/infectious collection. There is no extravasation of intraluminal contrast into the collection and there is no evidence of aortic dissection. 2. There is volume loss in basal segments of the left lower lobe and a small left pleural effusion. There is a small amount of infiltrate in the posterior basal segment of the right lower lobe. There is no pleural effusion on the right side. I called and spoke with the patient's surgeon, Dr. Crowley, discussed CT findings including radiology concern for potential infectious etiology. He reviewed the CT and felt imaging findings were appropriate postoperatively at this point. He noted that he would have his team follow-up with the patient to arrange timely outpatient follow-up. I contacted the patient at preferred number listed and left voice message noting that she should follow-up with her surgeon and to return immediately for any worsening symptoms including increasing pain or fever.
== END 2024-05-31 01:25 | disposition home or self-care (01) ==
PROVIDERS: Emergency Medicine; Emergency Provider Student in an Organized Health Care Education/Training Program; PCP Nurse Practitioner Family
DX: R55 Syncope and collapse; Z98.890 Other specified postprocedural states; Z79.02 Long term (current) use of antithrombotics/antiplatelets; Z79.899 Other long term (current) drug therapy; G43.909 Migraine, unspecified, not intractable, without status migrainosus; F41.9 Anxiety disorder, unspecified; I10 Essential (primary) hypertension; Z79.82 Long term (current) use of aspirin; I48.91 Unspecified atrial fibrillation
CPT/HCPCS: 00123; 71275; 80053; 93005; 99285; 74174; 81003; 81015; 84484; 85025; 85610; 85730; 93010; J3490

== ENCOUNTER 2024-06-04 11:00 | Outpatient (RCR) | payer OTHER, SELFPAY ==
--- NOTE | 2024-06-04 10:30 | RT.EKG_ITS ---
APPROVED REPORT Exam: Resting ECG Reason for Exam: cardiac rehab intake Patient Location: O HR:115 bpm ECG Measurements Heart Rate 115 AXIS AL [id number] P [id number] QRSd 115 QRS 50 QT 334 T 171 QTc 462 Conclusion Atrial fibrillation...? atrial activity Nonspecific intraventricular conduction delay...QRSd >115mS, not LBBB/RBBB Low voltage, precordial leads...precordial leads <1.0mV Nondiagnostic ST-T abnormalities
== END 2024-06-09 23:59 | disposition home or self-care (01) ==
LOC: CR 11:00
PROVIDERS: PCP Nurse Practitioner Family; Visit Provider Internal Medicine Cardiovascular Disease
DX: I71.21 Aneurysm of the ascending aorta, without rupture (principal); Z51.89 Encounter for other specified aftercare
CPT/HCPCS: S9472

== ENCOUNTER 2024-07-06 13:06 | Outpatient (RCR) | payer OTHER, SELFPAY ==
--- NOTE | 2024-06-20 12:45 | RT.EKG_ITS ---
APPROVED REPORT Exam: Resting ECG Reason for Exam: Low HR Patient Location: O HR:40 bpm ECG Measurements Heart Rate 40 AXIS IL 191 P 1 QRSd 88 QRS 20 QT 552 T 155 QTc 451 Conclusion Sinus bradycardia...rate< [address]-T abnormalities
== END 2024-07-10 23:59 | disposition home or self-care (01) ==
LOC: CR 13:06
PROVIDERS: PCP Nurse Practitioner Family; Visit Provider Internal Medicine Cardiovascular Disease
DX: I71.21 Aneurysm of the ascending aorta, without rupture (principal); Z51.89 Encounter for other specified aftercare
CPT/HCPCS: S9472

== ENCOUNTER 2024-08-06 13:49 | Outpatient (RCR) | payer OTHER, SELFPAY | END 2024-08-10 23:59 | disposition home or self-care (01) | LOC: CR 13:49 | PROVIDERS: PCP Nurse Practitioner Family; Visit Provider Internal Medicine Cardiovascular Disease | DX: I71.21 Aneurysm of the ascending aorta, without rupture (principal); Z51.89 Encounter for other specified aftercare | CPT/HCPCS: S9472 ==